=== PATIENT | female | born 1980 | race Two or more races ===

== ENCOUNTER 2019-07-30 09:42 | Emergency (ER) | payer OTHER ==
[~2019-07-30] VITALS: Ht 170.2 cm; Wt 58.5 kg
[2019-07-30] MEDS ORDERED: TELMISARTAN-HC1 EAC1 (10:20)
== END 2019-07-30 12:29 | disposition home or self-care (01) ==
LOC: ER 09:42
DX: M79.18 Myalgia, other site (principal); M79.622 Pain in left upper arm; M79.621 Pain in right upper arm